=== PATIENT | female | born 1945 | race Caucasian/White ===

== ENCOUNTER 2019-03-05 06:43 | Outpatient (CLI) | payer OTHER | END 2019-03-05 07:00 | disposition home or self-care (01) | LOC: LAB 06:43 | DX: E03.8 Other specified hypothyroidism (principal); I10 Essential (primary) hypertension; M17.11 Unilateral primary osteoarthritis, right knee; E11.9 Type 2 diabetes mellitus without complications; F33.8 Other recurrent depressive disorders; E78.2 Mixed hyperlipidemia; I80.221 Phlebitis and thrombophlebitis of right popliteal vein; D50.8 Other iron deficiency anemias; D51.8 Other vitamin B12 deficiency anemias; N39.0 Urinary tract infection, site not specified ==

== ENCOUNTER 2019-03-05 08:41 | Outpatient (CLI) | payer OTHER | END 2019-03-05 08:48 | disposition home or self-care (01) | LOC: NUCLEAR 08:41 | DX: M17.11 Unilateral primary osteoarthritis, right knee (principal); I80.221 Phlebitis and thrombophlebitis of right popliteal vein ==

== ENCOUNTER 2019-03-15 11:00 | Inpatient (IN) | payer OTHER ==
[~2019-03-15] VITALS: Ht 152.4 cm; Wt 73.5 kg
[2019-03-15] MEDS ORDERED: SYNTHROID88 MCG PO (11:52)
[2019-03-15] MEDS ORDERED: CELEXA20 MG PO (11:53)
[2019-03-15] MEDS ORDERED: PREVACID30 MG PO (11:53)
[2019-03-15] MEDS ORDERED: PLAVIX75 MG PO (11:54)
[2019-03-15] MEDS ORDERED: GLUCOPHAGE XR500 MG PO (11:54)
[2019-03-15] MEDS ORDERED: COZAAR25 MG PO (11:55)
[2019-03-15] MEDS ORDERED: GABAPENTIN300 MG PO (11:56)
== END 2019-03-30 18:04 | DRG 470 ==
LOC: O/R 03-23 06:07 → SURH 03-23 06:07
PROVIDERS: ADMIT Orthopaedic Surgery
PROC: 0MNN0ZZ Release Right Knee Bursa and Ligament, Open Approach (ICD-10-PCS; 2019-03-23)
PROC: 0SRC0J9 Replacement of Right Knee Joint with Synthetic Substitute, Cemented, Open Approach (ICD-10-PCS; principal; 2019-03-23 12:00)
PROC: 30233N1 Transfusion of Nonautologous Red Blood Cells into Peripheral Vein, Percutaneous Approach (ICD-10-PCS; 2019-03-26)
DX: M17.11 Unilateral primary osteoarthritis, right knee (principal); I82.4Z2 Acute embolism and thrombosis of unspecified deep veins of left distal lower extremity; M80.00XA Age-related osteoporosis with current pathological fracture, unspecified site, initial encounter for fracture; D62 Acute posthemorrhagic anemia; M22.11 Recurrent subluxation of patella, right knee; N99.521 Infection of incontinent external stoma of urinary tract; B96.29 Other Escherichia coli [E. coli] as the cause of diseases classified elsewhere; E03.8 Other specified hypothyroidism; E11.9 Type 2 diabetes mellitus without complications; I10 Essential (primary) hypertension; Z79.4 Long term (current) use of insulin

== ENCOUNTER 2019-05-18 05:30 | Day surgery (SDC) | payer OTHER ==
[~2019-05-18 05:30] MED LIST: CELEXA20 MG PO; COZAAR25 MG PO; EXELON PO; GABAPENTIN300 MG PO; GLUCOPHAGE XR500 MG PO; LIPITOR PO; PLAVIX75 MG PO; PREVACID30 MG PO; SYNTHROID88 MCG PO
[2019-05-18] MEDS ORDERED: PERCOCET 5-3251 EACH PO (12:32)
== END 2019-05-18 15:55 | disposition home or self-care (01) ==
LOC: CIR.AMB 05:30
DX: T84.89XA Other specified complication of internal orthopedic prosthetic devices, implants and grafts, initial encounter (principal); M24.661 Ankylosis, right knee; M24.561 Contracture, right knee; Z96.651 Presence of right artificial knee joint